=== PATIENT | female | born 1970 | race Caucasian/White ===

== ENCOUNTER 2016-12-26 10:26 | Emergency (ER) | payer BC ==
[~2016-12-26] VITALS: Ht 154.9 cm; Wt 58.0 kg
[2016-12-26 10:28] VITALS: BP 176/83; PULSE 79; RESP 15; TEMP 97.9; O2SAT 99
[2016-12-26 11:07] LABS: BLOOD, URINE SMALL (NEG); COMMENT (UR) CULTURE INDICATED; CULTURE IF INDICATED CULTURE INDICATED; GLUCOSE,URINE NEG (NEG); KETONE, URINE NEG (NEG); MUCUS URINE FEW /lpf (OCC); NITRITE,URINE NEG (NEG); PH, URINE 7.5 (5.0-8.5); SQUAMOUS EPITHELIAL CELL URINE 2 /hpf (0-5); TRANSITIONAL EPI CELLS, URINE 1 /hpf; URINE COLOR YELLOW (YELLW/STRAW)
[2016-12-26 11:09] LABS: BACTERIA, URINE OCC /hpf
--- NOTE | 2016-12-26 12:07 | PD ---
HPI Chief Complaint: Complaint Time Seen by Provider: 12:02 Travel History International Travel<30 days: No Contact w/Intl Traveler<30days: No Traveled to known affect area: No History of Present Illness HPI 46-year-old female presents to the emergency department for evaluation of possible urinary tract infection. Patient states the symptoms started on Monday, 2 days ago. She reports dysuria, frequency, urgency. She denies any flank pain. No abdominal pain. No nausea or vomiting. No fevers. Patient states she is from out of town with concerns left eye she came to the emergency department. She does report a history of pyelonephritis and that is why she wanted to be seen before it got worse. Patient has intricate plenty of fluids. She has a history of rheumatoid arthritis and hypertension. She denies any other complaints at this time. Patient denies any abnormal vaginal discharge or risk of STDs. [facility] Past Medical History Depression: Yes Hypertension: Yes ?: Not LMP: 11/2016 Social History Alcohol Use: No Tobacco Use: No Substance Use: No Allergies-Medications (Allergen,Severity, Reaction): Coded Allergies: No Known Allergies (Unverified , 12/26/16) Review of Systems Except as stated in HPI: all other systems reviewed are Neg Physical Exam Narrative GENERAL: Well-nourished, well-developed female patient, ambulatory. Afebrile. SKIN: Focused skin assessment warm/dry. HEAD: Normocephalic. Atraumatic. EYES: No scleral icterus. No injection or drainage. NECK: Supple, trachea midline. No JVD or lymphadenopathy. CARDIOVASCULAR: Regular rate and rhythm without murmurs, gallops, or rubs. RESPIRATORY: Breath sounds equal bilaterally. No accessory muscle use. Lungs sounds are clear to auscultation. GASTROINTESTINAL: Abdomen soft, non-tender, nondistended. MUSCULOSKELETAL: No cyanosis, or edema. BACK: No CVA tenderness. Data Data Last Documented VS Vital Signs Date Time Temp Pulse Resp B/P Pulse Ox O2 Delivery O2 Flow Rate FiO2 12/26/16 10:28 97.9 79 15 176/83 99 Orders Urinalysis - C+S If Indicated (12/26/16 10:31) Ed Urine Pregnancytest Poc (12/26/16 10:31) Urine Culture (12/26/16 10:36) Labs Laboratory Tests Test 12/26/16 10:36 Urine Color YELLOW Urine Turbidity CLEAR Urine pH 7.5 Urine Specific [place] 1.012 Urine Protein NEG mg/dL Urine Glucose (UA) NEG mg/dL Urine Ketones NEG mg/dL Urine Occult Blood SMALL Urine Nitrite NEG Urine Bilirubin NEG Urine Urobilinogen LESS THAN 2.0 MG/DL Urine Leukocyte Esterase MOD Urine RBC 41 /hpf Urine WBC 42 /hpf Urine Squamous Epithelial 2 /hpf Cells Urine Transitional Epithelial 1 /hpf Cells Urine Bacteria OCC /hpf Urine Mucus FEW /lpf Urine Yeast (Budding) Microscopic Urinalysis Comment CULTURE INDICATED MDM Medical Decision Making Medical Screen Exam Complete: Yes Emergency Medical Condition: Yes Medical Record Reviewed: Yes Differential Diagnosis UTI versus pyelonephritis versus dysuria Narrative Course 46-year-old female presents to the emergency department for evaluation of possible UTI. UA and urine test were completed at triage. Urine test is negative. UA shows small occult blood, moderate leukocyte esterase, 42 wbc's, occasional bacteria. Patient will be discharged with a prescription for Macrobid for UTI. Patient is to return for any acute worsening of symptoms. She verbalizes agreement and understanding. The patient was discharged in stable condition with instructions, including return instructions and follow up instructions. Diagnosis Primary Impression: Urinary tract infection Qualified Code: N30.01 - Acute cystitis with hematuria Referrals: Primary Care Physician call for appointment Patient Instructions: General Instructions, Urinary Tract Infection in Women ( ED) Additional Instructions: Take antibiotic as directed until gone. Drink plenty of fluids. Follow-up with your primary care physician. Return to the emergency department for any acute worsening of symptoms. Med/Other Pt SpecificInfo: Prescription(s) given Scripts Nitrofurantoin Monohydrate Macrocrystals (Macrobid)100 Mg [id number] Mg PO BID 7 Days Ref 0 Prov:Iris Stein 12/26/16 Disposition: 01 DISCHARGE HOME Condition: Stable Iris Stein Dec 26, 2016 12:07
[2016-12-26] MEDS ORDERED: MACR100C2 PO (12:20)
== END 2016-12-26 12:25 | disposition home or self-care (01) ==
LOC: NEPB 10:26
DX: N30.01 Acute cystitis with hematuria (principal); B96.20 Unspecified Escherichia coli [E. coli] as the cause of diseases classified elsewhere; I10 Essential (primary) hypertension; Z87.448 Personal history of other diseases of urinary system; Z87.39 Personal history of other diseases of the musculoskeletal system and connective tissue; Z86.59 Personal history of other mental and behavioral disorders
CPT/HCPCS: 81001; 84703; 87077; 87086; 87186; 99283